=== PATIENT | female | born 1965 | race Caucasian/White ===

== ENCOUNTER 2023-08-24 16:51 | Emergency (ER) | payer OTHER, SELFPAY ==
[2023-08-24 17:00] VITALS: BP 141/78; PULSE 87; RESP 20; TEMP 36.6; O2SAT 100; BMI 17.9
--- NOTE | 2023-08-24 17:05 | PC.NURSE ---
Pain and swelling to left ankle, skin pink and warm and pulses present, dark blue/purple bruising noted to posterior ankle and calf.
--- NOTE | 2023-08-24 17:07 | XR_ITS ---
The [address] [address] Patient Name: NINA GRIMES MRN: [id number] date: 1965 Sex: F Assigned Patient Location: ER Current Patient Location: ED.MAIN Accession/Order Number: [id number] Exam Date: 08/24/2023 17:15 Report Date: 08/24/2023 18:00 At the request of: HOLLI CUNNINGHAM Procedure: XR tibia fibula LT 2V EXAM: XR tibia fibula LT 2V, XR ankle LT min 3V HISTORY: pain COMPARISON: None. TECHNIQUE: 3 views of left ankle and 5 views of left tibia-fibula FINDINGS: There is a nondisplaced fracture of the medial malleolus. Ankle mortise is normal. Talar dome is congruent. The remaining bones are unremarkable. There is soft tissue swelling about the ankle. XR/XR tibia fibula LT 2V IMPRESSION: nondisplaced fracture of the medial malleolus with soft tissue swelling about the ankle. Electronically authenticated by: ANAHY DE OLIVEIRA Date: 08/24/2023 18:00
--- NOTE | 2023-08-24 17:07 | XR_ITS ---
The [address] [address] Patient Name: NINA GRIMES MRN: [id number] date: 1965 Sex: F Assigned Patient Location: ER Current Patient Location: ED.MAIN Accession/Order Number: [id number] Exam Date: 08/24/2023 17:15 Report Date: 08/24/2023 18:00 At the request of: HOLLI CUNNINGHAM Procedure: XR ankle LT min 3V EXAM: XR tibia fibula LT 2V, XR ankle LT min 3V HISTORY: pain COMPARISON: None. TECHNIQUE: 3 views of left ankle and 5 views of left tibia-fibula FINDINGS: There is a nondisplaced fracture of the medial malleolus. Ankle mortise is normal. Talar dome is congruent. The remaining bones are unremarkable. There is soft tissue swelling about the ankle. XR/XR ankle LT min 3V IMPRESSION: nondisplaced fracture of the medial malleolus with soft tissue swelling about the ankle. Electronically authenticated by: ANAHY DE OLIVEIRA Date: 08/24/2023 18:00
--- NOTE | 2023-08-24 17:09 | ED.LOWEXI1 ---
HPI - Extremity Injury (Lower) General Chief Complaint: Extremity Injury, Lower Stated Complaint: Lower Extremity Injury Time Seen by Provider: 08/24/23 16:56 Source: patient Mode of arrival: walk-in Limitations: no limitations History of Present Illness HPI Narrative: patient is a 58yr Female presents to the Emergency Room with concerns of left ankle pain. Patient states she was walking three days ago when she rolled her left ankle it just gave out. Patient states she has a history of weak ankles and has broken both before. She has a prior surgical scar to the anterior knee from patella fracture remotely. Patient denies any head or neck injury. Patient notes pain is moderate to the left ankle swelling, she presents full weightbearing with Ron wrap and moderate bruising. She denies any blood thinner use. Patient notes pain radiates from the ankle joint up to her mid galeana. Injury: Left: ankle Related Data Previous Rx's Medication Instructions Recorded hydrocodone 5 mg-acetaminophen 325 1 tab PO Q6H PRN pain (scale score 08/24/23 mg tablet 7-10) 3 days #12 tabs Allergies Allergy/AdvReac Type Severity Reaction Status Date / Time No Known Drug Allergies Allergy Verified 08/24/23 17:00 Review of Systems ROS Constitutional: Denies: fever or chills Ears, nose, mouth, and throat: Denies: throat pain Cardiovascular: Denies: chest pain Respiratory: Denies: shortness of breath or cough Gastrointestinal: Denies: abdominal pain, nausea or vomiting Genitourinary: Denies: painful urination Musculoskeletal: Reports: extremity pain and extremity swelling (left ankle); Denies: back pain Neurological: Denies: headache Psychiatric: Denies: anxiety Exam Narrative Exam Narrative: Vital signs reviewed and nurse's notes. The patient is not hypoxic. General: Alert, no acute distress, patient resting comfortably Skin: warm, intact, no pallor noted Head: Normocephalic, atraumatic Eye: Normal conjunctiva, no exudates Respiratory: No acute distress, lungs CTA Musculoskeletal: No evidence of deformity to the left ankle . There is mild amount of swelling. There is mild to mod dependent ecchymosis. No erythema or warmth noted. DP and PT pulses are intact 2+. Normal sensation, normal capillary refill less than 2 seconds. There is no cyanosis or mottling noted. The patient has tenderness to and left ankle joint globally, mild pain to the mid proximal galeana, the most proximal aspect of the fibula is nontender. No pain to the left knee joint. The patient has negative anterior drawer and Wesley testing the left knee. Prior surgical scar noted over the patella. The patient was able to flex and extend although with pain. Patient was able to extend leg off the cart without difficulty. No tenderness noted to the 5th MT, midfoot. There is no pain with calcaneal squeeze, achilles tendon appears intact and no defect is palpated. The patient has no pelvic instability. The patient has no shortening or rotation noted to the bilateral lower extremities. Neurological: alert and orient x4, normal sensory and motor observed. Psychiatric: Cooperative Constitutional Vital Signs, click to edit/add: Last Vital Signs Temp 97.8 F 08/24/23 17:00 Pulse 87 08/24/23 17:00 Resp 20 08/24/23 17:00 BP 141/78 08/24/23 17:00 Pulse Ox 100 08/24/23 17:00 O2 Del Method Room Air 08/24/23 17:00 Course Vital Signs Vital signs: Vital Signs Temperature 97.8 F 08/24/23 17:00 Pulse Rate 87 08/24/23 17:00 Respiratory Rate 20 08/24/23 17:00 Blood Pressure 141/78 08/24/23 17:00 Pulse Oximetry 100 08/24/23 17:00 Oxygen Delivery Method Room Air 08/24/23 17:00 Temperature 97.8 F 08/24/23 17:00 Pulse Rate 87 08/24/23 17:00 Respiratory Rate 20 08/24/23 17:00 Blood Pressure 141/78 08/24/23 17:00 Pulse Oximetry 100 08/24/23 17:00 Oxygen Delivery Method Room Air 08/24/23 17:00 MDM - Extremity Injury (Lower) MDM Narrative Medical decision making narrative: patient agreeable to [place] for pain, ice pack applied. Discussed bruising to leg, weightbearing for the past three days. Compartment soft. Pulses present distally. X-rays performed of the ankle and tibia-fibula. Discussed medial malleolus fracture Possible nondisplaced lateral malleolus fracture. Ankle mortise preserved. Recommend boot, nonweightbearing. Notified podiatry on-call and they're agreeable to patient calling the office Friday with ice and elevation discussed. The patient is to followup with podiatry clinic on Friday or to return to the emergency department should any of the signs or symptoms worsen or new symptoms develop. Patient had questions answered. The patient agrees with the following Diagnosis and Treatment plan and the patient will be discharged home. Imaging Data left ankle xray: My impression: medial malleolus fracture, possible nondisplaced lateral malleolus fracture. Discharge Plan Discharge Chief Complaint: Extremity Injury, Lower Clinical Impression: Ankle fracture, left Patient Disposition: Home, Self-Care Time of Disposition Decision: 17:38 Condition: Good Prescriptions / Home Meds: New hydrocodone-acetaminophen 5-325 mg tablet 1 tab PO Q6H PRN (Reason: pain (scale score 7-10)) 3 Days Qty: 12 0RF Instructions: Leg Fracture (ED) Additional Instructions: recommend crutches, nonweightbearing, elevate and ice pending follow-up with podiatry. Contact office on Friday to discuss follow-up. ( Spoke with Dr. Dickson) Stand Alone Forms: Portal Instructions Referrals: Thom Dickson DPM [Physician] - As soon as possible Physician,Non-Staff, [Primary Care Provider] - 1 week Troy King DPM [Physician] - As soon as possible ED Ortho Splinting/Casting Orthopedic Splinting/Casting left ankle boot: Additional comments: Splint Application: The patient was placed in a ankle cam boot The patient was neurovascularly intact post application of the splint.
[2023-08-24] MEDS: HYDROCODONE/ACET 5-325 MG TABLET 1 TAB PO (17:25)
[2023-08-24] MEDS: HYDROCODONE/ACET 5-325 MG TABLET 2 TAB PO (17:59)
[2023-08-24 18:03] VITALS: BP 135/78; PULSE 67; RESP 22; O2SAT 97
== END 2023-08-24 18:05 | disposition home or self-care (01) ==
PROVIDERS: Emergency Provider Emergency Medicine
DX: S82.55XA Nondisplaced fracture of medial malleolus of left tibia, initial encounter for closed fracture (principal); X50.1XXA Overexertion from prolonged static or awkward postures, initial encounter
CPT/HCPCS: 73590; 73610; 99284